=== PATIENT | male | born 1935 | race Caucasian/White ===

== ENCOUNTER 2019-04-19 14:41 | Outpatient (CLI) | payer MEDICARE ==
--- NOTE | 2019-04-19 15:08 | RAD ---
XR Knee Rt 4 View STANDARD HISTORY: Fall, right knee pain FINDINGS: No fracture or dislocation is identified.
== END 2019-04-19 14:42 | disposition home or self-care (01) ==
LOC: SCSRAD 14:41
PROVIDERS: ATTEND Nurse Practitioner Family
DX: M25.561 Pain in right knee (principal)